=== PATIENT | male | born 1975 | race Caucasian/White ===

== ENCOUNTER 2021-10-15 15:02 | Emergency (ER) | payer OTHER, SELFPAY ==
[2021-10-15] MEDS: DACRIOSE EYE IRRIGATION 118 ML BOTTLE (15:25)
[2021-10-15 15:36] VITALS: BP 140/98; PULSE 71; RESP 20; TEMP 36.7; O2SAT 100
--- NOTE | 2021-10-15 15:50 | ED.EYEPROB ---
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 Severity: mild Severity scale (1-10): 4 If Pain, Quality: burning Treatments Prior to Arrival: irrigated eye Related Data Allergies Allergy/AdvReac Type Severity Reaction Status Date / Time No Known Allergies Allergy Verified 10/15/21 15:34 Review of Systems Review of Systems: All systems reviewed & are unremarkable except as noted in HPI and below PMFSH Past Medical History Medical History Conjunctivitis Exam Const: General: no acute distress and alert Orientation/consciousness: patient oriented x3 Limitations: no limitations HENMT: Head: normal to inspection Ears: external ears normal, TM's normal bilaterally and EAC's normal General nose exam: Normal external nose present and Normal nares present Face and sinus: normal facial exam and sinuses nontender Mouth: Yes lip normal and Yes moist mucous membranes Eyes: Pupils: Equal, round and reactive pupils present EOM: EOMs intact bilaterally Other: mild conjunctival injection. no FB seen, with minimal 4 o'clock scleral abrasion on fluorescein exam Neck: Neck: normal visual inspection and no lymphadenopathy Chest: Chest palpation & inspection: normal inspection of the chest Resp: Effort & Inspection: normal respiratory effort Auscultation: clear to auscultation bilaterally Cardio: Rate: regular rate Rhythm: regular rhythm GI: Auscultation: normal bowel sounds : General: Yes bladder normal to palpation and Yes no CVA tenderness Male General Exam: Yes normal external exam Testes: Testes normal Back/Spine/Pelvis: Back: no CVA tenderness Skin: General skin exam: normal color Rashes: no rashes Neuro: General: patient oriented x3, moves all extremities, no meningeal signs, no focal motor deficits and CN's II-XI intact bilaterally Extrem: General: normal to inspection and no pedal edema Psych: Appearance: grossly normal and well kempt Mental Status: mental status grossly normal Affect: normal affect Thought content: Yes Normal thought content present Course Course Emergency Course: Pt was stable in the ED with less left eye irritation Reevaluation(s) Date: 10/15/21 Time: 15:17 Vital Signs Vital signs: Vital Signs Temperature 36.7 C 10/15/21 15:36 Pulse Rate 71 10/15/21 15:36 Respiratory Rate 20 10/15/21 15:36 Blood Pressure 140/98 H 10/15/21 15:36 Pulse Oximetry 100 10/15/21 15:36 Temperature 36.9 C 10/15/21 16:09 Pulse Rate 68 10/15/21 16:09 Respiratory Rate 20 10/15/21 16:09 Blood Pressure 148/82 H 10/15/21 16:09 Pulse Oximetry 98 10/15/21 16:09 Procedures FB Removal Eye Foreign Body #1: Foreign Body Removal Date: 10/15/21 Foreign Body Removal Time: 15:21 Time Out performed: Yes Location: eye (L) Topical anesthetic used: tetracaine Foreign body: other (none.) Evidence of corneal penetration: No Technique: irrigation, eye wash bottle, NS and other (no FB seen) Post-procedure medication: ophthalmic antibiotic Patient tolerated procedure: well Foreign Body Removal Narrative: mild left scleral injection with minimal 4 o'clock abrasion. MDM - Eye Problem Differential Diagnosis Differential diagnosis: Likely conjunctivitis Medical Records Attestation: I reviewed the patient's medical records. Critical Care Time Critical Care Time Critical Car
[2021-10-15] MEDS: ERYTHROMYCIN OPHTH OINTMENT 3.5 GM TUBE 1 APPLIC LEFT EYE (16:00)
[2021-10-15 16:09] VITALS: BP 148/82; PULSE 68; RESP 20; TEMP 36.9; O2SAT 98
== END 2021-10-15 16:10 | disposition home or self-care (01) ==
PROVIDERS: Emergency Provider Emergency Medicine
DX: H10.32 Unspecified acute conjunctivitis, left eye (principal)
CPT/HCPCS: 99283; A9270